=== PATIENT | female | born 1995 | race Caucasian/White ===

== ENCOUNTER 2017-09-02 13:02 | Emergency (ER) | payer OTHER, SELFPAY ==
[2017-09-02 13:26] VITALS: BP 126/78; PULSE 98; RESP 18; TEMP 36.9; O2SAT 99; BMI 20.3
--- NOTE | 2017-09-02 13:57 | ED_ITS ---
HPI - Abdominal Pain General Chief Complaint: Abdominal Pain Stated Complaint: ABDOMINAL PAIN,VOMMITING,BLOOD IN STOOL Time Seen by Provider: 09/02/17 13:57 Source: patient Mode of arrival: ambulatory Limitations: no limitations History of Present Illness HPI narrative: Patient is a 22-year-old female presenting with lower abdominal pain and cramping along with diarrhea. She said she woke up this morning feeling quite nauseated he and vomited a couple times and she had multiple episodes of loose diarrhea and lower abdominal cramping. She had a very small amount of blood as well. She was feeling ill are ready for about 1-2 weeks with upper respiratory like symptoms. On that she woke up with a GI symptoms today. She thinks she has had fever off and on. She is tolerating oral fluids. No on else is sick at home. MD complaint: abdominal pain Related Data Home Medications Medication Instructions Recorded Confirmed No Known Home Medications 09/02/17 09/02/17 Previous Rx's Medication Instructions Recorded ondansetron [Zofran ODT] 4 mg PO Q6H PRN #10 tab 09/02/17 Allergies Allergy/AdvReac Type Severity Reaction Status Date / Time No Known Drug Allergies Allergy Verified 07/27/17 00:42 Review of Systems Review of Systems GENERAL: Denies chills, fatigue, malaise, fever, sweats, travel HEENT: + nasal congestion, drainage RESPIRATORY: + cough Denies dyspnea, wheezing, hemoptysis, sputum. CARDIOVASCULAR: Denies chest pain, palpitations, orthopnea, edema GASTROINTESTINAL: See HPI : Denies dysuria, frequency, incontinence, hematuria, urinary retention, flank pain. MUSCULOSKELETAL: Denies weakness, joint pain, or bony pain SKIN: No rash, no erythema, no pruritus NEUROLOGIC: Denies weakness, dizziness, headache, numbness, change in speech, confusion PSYCHIATRIC: No concerning psychosocial issues. 12 point review of systems is negative except for those stated above and HPI All systems reviewed & are unremarkable except as noted in HPI and below PFSH Medical History Hip bursitis (Acute) Social History Smoking Status: Never smoker Exam Initial Vital Signs Initial Vital Signs: Vital Signs Temperature 98.5 F 09/02/17 13:26 Pulse Rate 98 H 09/02/17 13:26 Respiratory Rate 18 09/02/17 13:26 Blood Pressure 126/78 H 09/02/17 13:26 Pulse Oximetry 99 09/02/17 13:26 GENERAL: Well-appearing, well-nourished and in no acute distress. HEENT: Head atraumatic,EOMI, pupils reactive, moist mucous membranes CARDIOVASCULAR: Regular rate and rhythm without murmurs, rubs or gallops. RESPIRATORY: Breath sounds equal bilaterally, no wheezes rales or rhonchi. ABDOMEN: Soft, mild lower abdominal tenderness no guarding no rebound : No CVA tenderness EXTREMITIES: Normal range of motion, no clubbing or edema. Neurovascularly intact NEUROLOGICAL: Alert and oriented x4.Normal gait and speech. Cranial nerves II through XII grossly intact. SKIN: Warm, dry, no laceration, no petechiae, no rashes or lesions. Course Orders Ordered: ED Orders 09/02/17 14:20 Complete Blood Count AUTO DIFF Stat Comprehensive Metabolic Panel Stat Lipase Stat Discontinued Medications Sodium Chloride (Normal Saline 0.9%) 1,000 mls @ 150 mls/hr IV CONT MIKI Last Infusion: 09/02/17 15:24 Dose: 1,000 mls/hr Admin: 09/02/17 14:32 Dose: 150 mls/hr Ketorolac Tromethamine (Toradol) 30 mg IV NOW ONE Stop: 09/02/17 14:12 Last Admin: 09/02/17 14:32 Dose: 30 mg Ondansetron HCl (Zofran) 4 mg IV NOW ONE Stop: 09/02/17 14:12 Last Admin: 09/02/17 14:32 Dose: 4 mg Vital Signs - 8 hr 09/02/17 13:26 09/02/17 14:29 09/02/17 15:05 Temperature 98.5 F Pulse Rate 98 H 77 69 Respiratory Rate 18 18 15 Blood Pressure 126/78 H Blood Pressure [Right Arm] 115/69 117/74 Pulse Oximetry 99 98 100 MDM - Abdominal Pain Lab Data Result diagrams: 09/02/17 14:20 09/02/17 14:20 Lab Results 09/02/17 09/02/17 Range/Units 14:20 14:20 WBC 4.9 (4.5-11.0) X10^3/uL RBC 4.93 (4.0-5.2) X10^6/uL Hgb 13.9 (12.0-16.0) g/dL Hct 40.7 (36-46) % MCV 82.7 (80-100) fL MCH 28.2 (26-34) PG MCHC 34.1 (30-36) % RDW 12.8 (11.6-14.8) % Plt Count 258 (150-400) X10^3/uL Neut % (Auto) 64.9 (50-75) % Lymph % (Auto) 21.5 L (25-40) % [place] % (Auto) 8.7 (3-14) % Eos % (Auto) 4.2 H (2-4) % Baso % (Auto) 0.7 (0-2) % Neut # (Auto) 3200 (6317-2611) /uL Sodium 141 (137-145) mmol/L Potassium 4.2 (3.4-5.1) mmol/L Chloride 103 (98-107) mmol/L Carbon Dioxide 27 (22-32) mmol/L BUN 10 (7-17) mg/dL Creatinine 0.50 L (0.52-1.04) mg/dL Estimated GFR > 60.0 (>60) mL/min BUN/Creatinine Ratio 20.0 (6-22) Glucose 91 (70-100) mg/dL Calcium 9.4 (8.4-10.2) mg/dL Total Bilirubin 0.4 (0.2-1.3) mg/dL AST 31 (14-36) IU/L ALT 50 (9-52) IU/L Alkaline Phosphatase 65 (38-126) U/L Total Protein 7.8 (6.3-8.2) g/dL Albumin 4.4 (3.5-5.0) g/dL Globulin 3.4 (1.7-4.1) g/dL Albumin/Globulin Ratio 1.3 (1.0-2.8) Lipase 22 L (23-300) U/L Discharge Plan Departure Patient Disposition: Home, Self-Care Clinical Impression: Gastroenteritis Discharge Date/Time: 09/02/17 15:55 Interventions: ED Discharge Assessment Last Done: 09/02/17 15:55 Instructions: DI for Viral Gastroenteritis -- Adult Activity Restrictions/Additional Instructions: 1) You have been diagnosed with viral gastroenteritis 2) What to do: Drink frequent but small amounts of fluids. I recommend Gatorade or a Gatorade-like product, as it has small amounts of sugar and salts that improve fluid retention. 3) Take medications as directed 4) Follow up with your primary care provider in 2-3 days 5) Return to ER if you should have any new or worsening symptoms such as, unable to hold down fluids despite use of anti-nausea medications and the small volume oral rehydration strategy. Prescriptions: New ondansetron [Zofran ODT] 4 mg tablet,disintegrating 4 mg PO Q6H PRN (Reason: nausea and vomiting) Qty: 10 RF: 0 No Action No Known Home Medications RF: 0 Referrals: [facility] [Outside]
[2017-09-02 14:29] VITALS: BP 115/69; PULSE 77; RESP 18; O2SAT 98
[2017-09-02] MEDS: SODIUM CHLORIDE 0.9% 1,000 ML 150 ML IV (14:32)
[2017-09-02] MEDS: ONDANSETRON 4 MG/2 ML INJ IV (14:32)
[2017-09-02] MEDS: KETOROLAC 60 MG/2 ML VIAL 30 MG IV (14:32)
[2017-09-02 14:35] LABS: Add Manual Diff / Slide Review NO; Basophils Percent Auto 0.7 % (0-2); Eosinophils Percent Auto 4.2 % (2-4); Hematocrit 40.7 % (36-46); Hemoglobin 13.9 g/dL (12.0-16.0); Lymphocytes Percent Auto 21.5 % (25-40); Mean Corpuscular HGB Conc 34.1 % (30-36); Mean Corpuscular Hemoglobin 28.2 PG (26-34); Mean Corpuscular Volume 82.7 fL (80-100); Monocytes Percent Auto 8.7 % (3-14); Neutrophils Absolute Auto 3200 /uL (3000-5900); Neutrophils Percent Auto 64.9 % (50-75); Platelet Count 258 X10^3/uL (150-400); Red Blood Cell Count 4.93 X10^6/uL (4.0-5.2); Red Cell Distribution Width 12.8 % (11.6-14.8); White Blood Cell Count 4.9 X10^3/uL (4.5-11.0)
[2017-09-02 14:43] LABS: Alanine Aminotransferase 50 IU/L (9-52); Albumin 4.4 g/dL (3.5-5.0); Albumin Globulin Ratio 1.3 (1.0-2.8); Alkaline Phosphatase 65 U/L (38-126); Aspartate Aminotransferase 31 IU/L (14-36); Bilirubin Total 0.4 mg/dL (0.2-1.3); Blood Urea Nitrogen 10 mg/dL (7-17); Calcium 9.4 mg/dL (8.4-10.2); Carbon Dioxide 27 mmol/L (22-32); Chloride 103 mmol/L (98-107); Estimated Glomerular Filt Rate > 60.0 mL/min (>60); Globulin 3.4 g/dL (1.7-4.1); Glucose 91 mg/dL (70-100); HEMOLYSIS < 15 (0-50); Lipase 22 U/L (23-300); Potassium 4.2 mmol/L (3.4-5.1); Sodium 141 mmol/L (137-145); Total Protein 7.8 g/dL (6.3-8.2)
[2017-09-02 15:05] VITALS: BP 117/74; PULSE 69; RESP 15; O2SAT 100
--- NOTE | 2017-09-02 15:07 | ED_ITS ---
HPI - Abdominal Pain General Chief Complaint: Abdominal Pain Stated Complaint: ABDOMINAL PAIN,VOMMITING,BLOOD IN STOOL Time Seen by Provider: 09/02/17 13:57 Source: patient Mode of arrival: ambulatory Limitations: no limitations History of Present Illness MD complaint: abdominal pain Related Data Home Medications Medication Instructions Recorded Confirmed No Known Home Medications 09/02/17 09/02/17 Previous Rx's Medication Instructions Recorded ondansetron [Zofran ODT] 4 mg PO Q6H PRN #10 tab 09/02/17 Allergies Allergy/AdvReac Type Severity Reaction Status Date / Time No Known Drug Allergies Allergy Verified 07/27/17 00:42 PFSH Medical History Hip bursitis (Acute) Social History Smoking Status: Never smoker Exam Initial Vital Signs Initial Vital Signs: Vital Signs Temperature 98.5 F 09/02/17 13:26 Pulse Rate 98 H 09/02/17 13:26 Respiratory Rate 18 09/02/17 13:26 Blood Pressure 126/78 H 09/02/17 13:26 Pulse Oximetry 99 09/02/17 13:26 Scores PERC Score Age greater than or equal to 50 years: No Heart rate greater than or equal to 100 bpm: No Room Air O2 Sat less than 95%: No Unilateral leg swelling: No Recent trauma or surgery: No Hemoptysis: No Prior PE or DVT: No Hormone Use: No Course Orders Ordered: ED Orders 09/02/17 14:20 Complete Blood Count AUTO DIFF Stat Comprehensive Metabolic Panel Stat Lipase Stat Sodium Chloride (Normal Saline 0.9%) 1,000 mls @ 150 mls/hr IV CONT MIKI Last Admin: 09/02/17 14:32 Dose: 150 mls/hr Discontinued Medications Ketorolac Tromethamine (Toradol) 30 mg IV NOW ONE Stop: 09/02/17 14:12 Last Admin: 09/02/17 14:32 Dose: 30 mg Ondansetron HCl (Zofran) 4 mg IV NOW ONE Stop: 09/02/17 14:12 Last Admin: 09/02/17 14:32 Dose: 4 mg Vital Signs - 8 hr 09/02/17 13:26 09/02/17 14:29 Temperature 98.5 F Pulse Rate 98 H 77 Respiratory Rate 18 18 Blood Pressure 126/78 H Blood Pressure [Right Arm] 115/69 Pulse Oximetry 99 98 MDM - Abdominal Pain Lab Data Result diagrams: 09/02/17 14:20 09/02/17 14:20 Lab Results 09/02/17 09/02/17 Range/Units 14:20 14:20 WBC 4.9 (4.5-11.0) X10^3/uL RBC 4.93 (4.0-5.2) X10^6/uL Hgb 13.9 (12.0-16.0) g/dL Hct 40.7 (36-46) % MCV 82.7 (80-100) fL MCH 28.2 (26-34) PG MCHC 34.1 (30-36) % RDW 12.8 (11.6-14.8) % Plt Count 258 (150-400) X10^3/uL Neut % (Auto) 64.9 (50-75) % Lymph % (Auto) 21.5 L (25-40) % [place] % (Auto) 8.7 (3-14) % Eos % (Auto) 4.2 H (2-4) % Baso % (Auto) 0.7 (0-2) % Neut # (Auto) 3200 (2607-0128) /uL Sodium 141 (137-145) mmol/L Potassium 4.2 (3.4-5.1) mmol/L Chloride 103 (98-107) mmol/L Carbon Dioxide 27 (22-32) mmol/L BUN 10 (7-17) mg/dL Creatinine 0.50 L (0.52-1.04) mg/dL Estimated GFR > 60.0 (>60) mL/min BUN/Creatinine Ratio 20.0 (6-22) Glucose 91 (70-100) mg/dL Calcium 9.4 (8.4-10.2) mg/dL Total Bilirubin 0.4 (0.2-1.3) mg/dL AST 31 (14-36) IU/L ALT 50 (9-52) IU/L Alkaline Phosphatase 65 (38-126) U/L Total Protein 7.8 (6.3-8.2) g/dL Albumin 4.4 (3.5-5.0) g/dL Globulin 3.4 (1.7-4.1) g/dL Albumin/Globulin Ratio 1.3 (1.0-2.8) Lipase 22 L (23-300) U/L Discharge Plan Departure Patient Disposition: Home, Self-Care Clinical Impression: Gastroenteritis Instructions: DI for Viral Gastroenteritis -- Adult Activity Restrictions/Additional Instructions: 1) You have been diagnosed with viral gastroenteritis 2) What to do: Drink frequent but small amounts of fluids. I recommend Gatorade or a Gatorade-like product, as it has small amounts of sugar and salts that improve fluid retention. 3) Take medications as directed 4) Follow up with your primary care provider in 2-3 days 5) Return to ER if you should have any new or worsening symptoms such as, unable to hold down fluids despite use of anti-nausea medications and the small volume oral rehydration strategy. Prescriptions: New ondansetron [Zofran ODT] 4 mg tablet,disintegrating 4 mg PO Q6H PRN (Reason: nausea and vomiting) Qty: 10 RF: 0 No Action No Known Home Medications RF: 0 Referrals: [facility] [Outside]
== END 2017-09-02 15:55 | disposition home or self-care (01) ==
PROVIDERS: Emergency Provider Emergency Medicine
DX: K52.9 Noninfective gastroenteritis and colitis, unspecified (principal)
CPT/HCPCS: 36591; 80053; 81003; 81025; 83690; 85025; 96361; 96374; 96375; 99283; J1885; J2405

== ENCOUNTER 2018-02-14 14:26 | Emergency (ER) | payer OTHER, SELFPAY ==
[2018-02-14 14:52] VITALS: BP 115/76; PULSE 71; RESP 18; TEMP 37.6; O2SAT 98; BMI 20.8
--- NOTE | 2018-02-14 17:53 | DI.US.S_ITS ---
PROCEDURE: US OB <= 14 WEEKS FETUS INDICATIONS: BLEEDING OUTSIDE/PRIOR DATING DATA: Last menstrual period (LMP): 11/08/17. LMP-based estimated date of delivery (NICA): 08/15/18 (assuming viable gestation). First dating scan (date and location): This study, 02/14/18. Estimated date of delivery (NICA) from first dating scan: demise. TECHNIQUE: Real-time scanning was performed of the fetus and maternal pelvic organs, with image documentation. Endovaginal scanning was also performed to better visualize the fetus and maternal ovaries. COMPARISON: None. FINDINGS: Embryo: [place]-rump length 1.8 cm which correlates with a gestational age of 8 weeks 2 days, but no cardiac activity was present. Measurement variability in dating: +/- 4 weeks by LMP, +/- 7 days by mean sac diameter (use before 6 weeks gestation if crown-rump length not able to be measured), +/- 5 days by crown-rump length (up to 8 weeks 6 days gestation), +/- 7 days by crown-rump length (up to 13 weeks 6 days gestation). Maternal organs: Ovaries normal.. Limited images through the kidneys demonstrate no hydronephrosis. IMPRESSION: demise, 8 week 2 day gestational age by crown-rump length. No sign of ectopic . Dictated by: Doc Polk M.D. on 02/14/2018 at 18:48 Approved by: Doc Polk M.D. on 02/14/2018 at 18:50
--- NOTE | 2018-02-14 18:31 | ED_ITS ---
HPI - <Geraldine Mcintosh PA-C - Last Filed: 02/14/18 22:47> General Chief complaint: Vaginal Bleeding Stated complaint: 14 wks , cramping and bleeding Time Seen by Provider: 02/14/18 17:53 Source: patient Mode of arrival: ambulatory Limitations: no limitations History of Present Illness HPI Narrative: This 22-year-old female who is 14 weeks by LMP of comes in due to onset of pelvic cramps and vaginal bleeding today. She states that this is more than spotting, but she has not needed to change a pad since this started about 12 30 this afternoon. She states that [place] She has been trying to get into Ob at the [facility] here but has not been able to obtain an appointment since she returned home a few weeks ago. She is set up for some screening tomorrow. This is her 1st . She states that her Nexplanon was removed in end of March or early April and they thought she was at that point but tests were all negative. She has some menstrual irregularity and has always had heavy bleeding and severe cramping. She states that she has had workup in the past including for ovarian cysts but no problems found. She is concerned about endometriosis but has not had workup for that. She states that she was doing some gentle stretching like child's pose today when symptoms started. She denies any fevers, chills, or sweats at home. She denies any urinary symptoms, abdominal pain. She states that she did have significant nausea and vomiting earlier in the but not today. She denies any other new symptoms on systems review but is concerned that she may have had a positive urinalysis at the [facility] when tested. She was not called with results. Related Data Home Medications Medication Instructions Recorded Confirmed No Known Home Medications 09/02/17 09/02/17 Allergies Allergy/AdvReac Type Severity Reaction Status Date / Time No Known Drug Allergies Allergy Verified 02/14/18 14:57 Review of Systems <Geraldine Mcintosh PA-C - Last Filed: 02/14/18 22:47> Review of Systems All systems reviewed & are unremarkable except as noted in HPI and below PMFSH - <Geraldine Mcintosh PA-C - Last Filed: 02/14/18 22:47> Past Medical History Heavy menstrual bleeding and cramps, chronic right hip and left shoulder pain Surgical history: Reports no surgical history Exam <Geraldine Mcintosh PA-C - Last Filed: 02/14/18 22:47> Narrative Exam Narrative: GENERAL APPEARANCE: Patient sitting comfortably, in no distress. HEENT: PERRL, EOMI, conjunctiva pink NECK: Supple LUNGS: Clear to auscultation bilaterally. HEART: Rate and rhythm regular, normal S1 and S2, no S3 or S4. ABDOMEN: Soft, nondistended, bowel sounds present x 4 quadrants, no masses palpable, no hepatosplenomegaly. Mild suprapubic tenderness without guarding or rebound. No CVAT EXTREMITIES: No edema, no calf tenderness DERMATOLOGIC: No jaundice or exanthem NEUROLOGIC: Alert and oriented with normal speech and coordination Initial Vital Signs Initial Vital Signs: Vital Signs Temperature 99.6 F 02/14/18 14:52 Pulse Rate 71 02/14/18 14:52 Respiratory Rate 18 02/14/18 14:52 Blood Pressure 115/76 02/14/18 14:52 Pulse Oximetry 98 02/14/18 14:52 <Yolette Ott MD - Last Filed: 02/15/18 00:03> Initial Vital Signs Initial Vital Signs: Vital Signs Temperature 99.6 F 02/14/18 14:52 Pulse Rate 71 02/14/18 14:52 Respiratory Rate 18 02/14/18 14:52 Blood Pressure 115/76 02/14/18 14:52 Pulse Oximetry 98 02/14/18 14:52 Course <Geraldine Mcintosh PA-C - Last Filed: 02/14/18 22:47> Additional Information: Discussed with patient that ultrasound shows demise. This and her HCG level are consistent with an earlier stage of , and explained that possibly either dating was off due to variation in her menstrual cycle or demise occurred sometime ago. She is now having bleeding and cramping. She normally has severe cramping and heavy bleeding with menses and this is actually less severe now, so she will resume her usual ibuprofen and home treatments. She has not been able to see Ob locally, so she agrees to call [facility] tomorrow a.m. to set up f/u this week. Advised they may want to follow with lab work or repeat imaging depending upon her progress, she is agreeable with this as well as plan to return if any new symptoms such as fever, very heavy bleeding etc. Orders Ordered: ED Orders 02/14/18 17:53 US OB <= 14 weeks fetus Stat 02/14/18 18:28 ABO RH Type Stat Complete Blood Count AUTO DIFF Stat Comprehensive Metabolic Panel Stat HCG Quantitative Stat Discontinued Medications Ibuprofen (Advil) 800 mg PO NOW ONE Stop: 02/14/18 19:49 Last Admin: 02/14/18 19:51 Dose: 800 mg Ondansetron HCl (Zofran Odt) 4 mg PO NOW ONE Stop: 02/14/18 19:49 Last Admin: 02/14/18 19:52 Dose: 4 mg Vital Signs - 8 hr 02/14/18 18:39 02/14/18 20:42 Temperature 99.3 F 99.0 F Pulse Rate 84 80 Respiratory Rate 18 12 Blood Pressure [Left Arm] 118/74 110/72 Pulse Oximetry 100 98 <Yolette Ott MD - Last Filed: 02/15/18 00:03> Orders Ordered: ED Orders 02/14/18 17:53 US OB <= 14 weeks fetus Stat 02/14/18 18:28 ABO RH Type Stat Complete Blood Count AUTO DIFF Stat Comprehensive Metabolic Panel Stat HCG Quantitative Stat Discontinued Medications Ibuprofen (Advil) 800 mg PO NOW ONE Stop: 02/14/18 19:49 Last Admin: 02/14/18 19:51 Dose: 800 mg Ondansetron HCl (Zofran Odt) 4 mg PO NOW ONE Stop: 02/14/18 19:49 Last Admin: 02/14/18 19:52 Dose: 4 mg Vital Signs - 8 hr 02/14/18 18:39 02/14/18 20:42 Temperature 99.3 F 99.0 F Pulse Rate 84 80 Respiratory Rate 18 12 Blood Pressure [Left Arm] 118/74 110/72 Pulse Oximetry 100 98 MDM - OB/Uterine Contractions <Geraldine Mcintosh PA-C - Last Filed: 02/14/18 22:47> Lab Data Attestation: I reviewed the patient's lab results. Result diagrams: 02/14/18 18:28 02/14/18 18:28 Lab Results 02/14/18 02/14/18 02/14/18 Range/Units 18:28 18:28 18:28 WBC 10.0 (4.5-11.0) X10^3/uL RBC 4.90 (4.0-5.2) X10^6/uL Hgb 13.9 (12.0-16.0) g/dL Hct 40.9 (36-46) % MCV 83.6 (80-100) fL MCH 28.3 (26-34) PG MCHC 33.8 (30-36) % RDW 13.1 (11.6-14.8) % Plt Count 259 (150-400) X10^3/uL Neut % (Auto) 58.0 (50-75) % Lymph % (Auto) 30.8 (25-40) % [place] % (Auto) 7.3 (3-14) % Eos % (Auto) 3.2 (2-4) % Baso % (Auto) 0.7 (0-2) % Neut # (Auto) 5800 (8599-2338) /uL Sodium 143 (137-145) mmol/L Potassium 3.9 (3.4-5.1) mmol/L Chloride 104 (98-107) mmol/L Carbon Dioxide 25 (22-32) mmol/L BUN 5 L (7-17) mg/dL Creatinine 0.50 L (0.52-1.04) mg/dL Estimated GFR > 60.0 (>60) mL/min BUN/Creatinine Ratio 10.0 (6-22) Glucose 94 (70-100) mg/dL Calcium 9.6 (8.4-10.2) mg/dL Total Bilirubin 0.4 (0.2-1.3) mg/dL AST 37 H (14-36) IU/L ALT 46 (9-52) IU/L Alkaline Phosphatase 57 (38-126) U/L Total Protein 8.1 (6.3-8.2) g/dL Albumin 4.8 (3.5-5.0) g/dL Globulin 3.3 (1.7-4.1) g/dL Albumin/Globulin Ratio 1.5 (1.0-2.8) HCG, Quant 5096.3 mIU/mL Blood Type O Positive Urine Dip Bedside Urine Glucose Negative Bedside Urine Bilirubin - Negative Bedside Urine Ketone - Negative Urine Specific [place] 1.015 Bedside Urine Occult Blood +++ Bedside Urine pH 7.0 Bedside Urine Protein - Negative Bedside Urine Urobilinogen 1+ 2mg Bedside Urine Nitrite - Negative Bedside Urine Leukocytes - Negative Esterase <Yolette Ott MD - Last Filed: 02/15/18 00:03> Lab Data Lab Results 02/14/18 02/14/18 02/14/18 Range/Units 18:28 18:28 18:28 WBC 10.0 (4.5-11.0) X10^3/uL RBC 4.90 (4.0-5.2) X10^6/uL Hgb 13.9 (12.0-16.0) g/dL Hct 40.9 (36-46) % MCV 83.6 (80-100) fL MCH 28.3 (26-34) PG MCHC 33.8 (30-36) % RDW 13.1 (11.6-14.8) % Plt Count 259 (150-400) X10^3/uL Neut % (Auto) 58.0 (50-75) % Lymph % (Auto) 30.8 (25-40) % [place] % (Auto) 7.3 (3-14) % Eos % (Auto) 3.2 (2-4) % Baso % (Auto) 0.7 (0-2) % Neut # (Auto) 5800 (9816-0686) /uL Sodium 143 (137-145) mmol/L Potassium 3.9 (3.4-5.1) mmol/L Chloride 104 (98-107) mmol/L Carbon Dioxide 25 (22-32) mmol/L BUN 5 L (7-17) mg/dL Creatinine 0.50 L (0.52-1.04) mg/dL Estimated GFR > 60.0 (>60) mL/min BUN/Creatinine Ratio 10.0 (6-22) Glucose 94 (70-100) mg/dL Calcium 9.6 (8.4-10.2) mg/dL Total Bilirubin 0.4 (0.2-1.3) mg/dL AST 37 H (14-36) IU/L ALT 46 (9-52) IU/L Alkaline Phosphatase 57 (38-126) U/L Total Protein 8.1 (6.3-8.2) g/dL Albumin 4.8 (3.5-5.0) g/dL Globulin 3.3 (1.7-4.1) g/dL Albumin/Globulin Ratio 1.5 (1.0-2.8) HCG, Quant 5096.3 mIU/mL Blood Type O Positive Urine Dip Bedside Urine Glucose Negative Bedside Urine Bilirubin - Negative Bedside Urine Ketone - Negative Urine Specific [place] 1.015 Bedside Urine Occult Blood +++ Bedside Urine pH 7.0 Bedside Urine Protein - Negative Bedside Urine Urobilinogen 1+ 2mg Bedside Urine Nitrite - Negative Bedside Urine Leukocytes - Negative Esterase Discharge Plan Departure Patient Disposition: Home Clinical Impression: demise, Vaginal bleeding Discharge Date/Time: 02/14/18 20:46 Interventions: ED Discharge Assessment Last Done: 02/14/18 20:45 Instructions: Dealing With Miscarriage, DI for Miscarriage Activity Restrictions/Additional Instructions: Please return as we talked about if you have acutely worsening pain, or new symptoms such as uncontrollable vomiting or fever. Otherwise, please take 800 mg ibuprofen every 8 hr to help with cramping, and you can use Tylenol in addition as needed as well as your usual home treatments such as essential oils. Drink plenty of fluids and then you can start eating small amounts of bland food such as applesauce, bananas, white rice, clear broth, and you can advance your diet as tolerated. According to your test today, the baby appeared to be at about 8 weeks gestation. The discrepancy between this and your last period could be due to dates being off (i.e. from a missed period or timing of ovulation), or the baby may have stopped developing and passed at an earlier stage and the process of your body passing it is starting now. Please call [facility] tomorrow (where our SPECIAL ED[facility] SPECIALIST physicians practice). Let them know that you were seen in the emergency room with what we call demise, and that you need to schedule follow up this week. Dr. Bar is gas operation manager today but you can see any of the OB physicians there for recheck. They will be able to do follow-up testing and further treatment if you need. Prescriptions: No Action No Known Home Medications RF: 0 Referrals: Columba Bar MD [Physician] -
[2018-02-14 18:35] LABS: Add Manual Diff / Slide Review NO; Basophils Percent Auto 0.7 % (0-2); Eosinophils Percent Auto 3.2 % (2-4); Hematocrit 40.9 % (36-46); Hemoglobin 13.9 g/dL (12.0-16.0); Lymphocytes Percent Auto 30.8 % (25-40); Mean Corpuscular HGB Conc 33.8 % (30-36); Mean Corpuscular Hemoglobin 28.3 PG (26-34); Mean Corpuscular Volume 83.6 fL (80-100); Monocytes Percent Auto 7.3 % (3-14); Neutrophils Absolute Auto 5800 /uL (3000-5900); Platelet Count 259 X10^3/uL (150-400); Red Cell Distribution Width 13.1 % (11.6-14.8)
[2018-02-14 18:39] VITALS: BP 118/74; PULSE 84; RESP 18; TEMP 37.4; O2SAT 100
[2018-02-14 18:46] LABS: Alanine Aminotransferase 46 IU/L (9-52); Albumin 4.8 g/dL (3.5-5.0); Albumin Globulin Ratio 1.5 (1.0-2.8); Alkaline Phosphatase 57 U/L (38-126); Aspartate Aminotransferase 37 IU/L (14-36); Bilirubin Total 0.4 mg/dL (0.2-1.3); Blood Urea Nitrogen 5 mg/dL (7-17); Calcium 9.6 mg/dL (8.4-10.2); Carbon Dioxide 25 mmol/L (22-32); Chloride 104 mmol/L (98-107); Estimated Glomerular Filt Rate > 60.0 mL/min (>60); Globulin 3.3 g/dL (1.7-4.1); Glucose 94 mg/dL (70-100); HEMOLYSIS < 15 (0-50); Potassium 3.9 mmol/L (3.4-5.1); Sodium 143 mmol/L (137-145); Total Protein 8.1 g/dL (6.3-8.2)
[2018-02-14 19:03] LABS: HCG Quantitative /Beta subunit 5096.3 mIU/mL
[2018-02-14] MEDS: IBUPROFEN 400 MG TABLET 800 MG PO (19:51)
[2018-02-14] MEDS: ONDANSETRON 4 MG ODT PO (19:52)
[2018-02-14 20:42] VITALS: BP 110/72; PULSE 80; RESP 12; TEMP 37.2; O2SAT 98
== END 2018-02-14 20:46 | disposition home or self-care (01) ==
PROVIDERS: Emergency Medicine; Emergency Provider Internal Medicine
DX: O02.1 Missed abortion (principal); Z3A.14 14 weeks gestation of pregnancy
CPT/HCPCS: 36415; 76801; 76817; 80053; 81003; 84702; 85025; 86900; 86901; 99282; 99284

== ENCOUNTER 2018-02-16 00:42 | Emergency (ER) | payer OTHER, SELFPAY ==
[2018-02-16 00:45] VITALS: BP 125/92; PULSE 103; RESP 20; TEMP 36.8; O2SAT 100; BMI 20.9
[2018-02-16 00:50] VITALS: BP 125/92; PULSE 103; RESP 20; TEMP 36.8; O2SAT 100
--- NOTE | 2018-02-16 00:52 | ED.GENADULT ---
HPI - General Adult General Chief complaint: OB/Uterine Contractions Stated complaint: states miscarriage bleeding, dizziness approx 8 wk Time Seen by Provider: 02/16/18 00:50 Source: patient Mode of arrival: ambulatory Limitations: no limitations History of Present Illness HPI narrative: Patient is a O-positive blood type who was seen here in the emergency department recently and diagnosed with the intrauterine demise. She thought that she was 14 weeks along however the fetus measured approximately 8 weeks without any signs of life. Patient states she was discharged home not having any symptoms at all that over the past 6 hr she has had quite a bit of vaginal bleeding and also lower abdominal cramping lower back pain. No urinary symptoms. No fevers. She also states that she has felt lightheaded. She was concerned that she was bleeding too much so she came into the emergency department for evaluation. Related Data Home Medications Medication Instructions Recorded Confirmed No Known Home Medications 09/02/17 09/02/17 Allergies Allergy/AdvReac Type Severity Reaction Status Date / Time No Known Drug Allergies Allergy Verified 02/14/18 14:57 Review of Systems Constitutional Denies fever(s) and Denies headache(s) ENT Ears, Nose, Mouth, and Throat: Denies vertigo, Reports dizziness and Denies headache(s) Cardiovascular Denies chest pain, Denies syncope and Denies dyspnea Respiratory Denies dyspnea Gastrointestinal Gastrointestinal: Reports abdominal pain, Denies change in bowel habits and Reports nausea Genitourinary Denies dysuria, Denies urinary urgency, Reports vaginal discharge and Denies vaginal dryness Musculoskeletal Denies myalgias and Denies arthralgias Integumentary/Breasts Denies rash Neurologic Denies vertigo, Reports dizziness, Denies syncope and Denies headache(s) Hematologic/Lymphatic Comments: Not on anticoagulation Allergic/Immunologic Denies urticaria [facility] Medical History Hip bursitis (Acute) Surgical History No pertinent past surgical history (Acute) Social History marital status: Smoking Status: Former smoker Exam Initial Vital Signs Initial Vital Signs: Vital Signs Temperature 98.2 F 02/16/18 00:45 Pulse Rate 103 H 02/16/18 00:45 Respiratory Rate 20 02/16/18 00:45 Blood Pressure 125/92 H 02/16/18 00:45 Pulse Oximetry 100 02/16/18 00:45 Const General: cooperative, healthy appearing, comfortable, well developed, well groomed and No acute distress Orientation: alert, awake and oriented x3 HENMT Head: normal to inspection and normocephalic Resp Effort & Inspection: normal respiratory effort Auscultation: clear to auscultation bilaterally Cardio Rate: regular rate Rhythm: regular rhythm Pulses: radial pulses present GI Inspection: non-distended Palpation: soft, No firm, No guarding, No rigid and tender ( lower abdomen) External Female Exam: external appearance normal Speculum Exam - Vagina: normal appearance of the vagina and vaginal bleeding Speculum Exam - Cervix: normal appearance of the cervix OB/External & Speculum: vaginal bleeding Skin Lesions: no lesions Rashes: no rashes Neuro General: alert, awake and oriented x3 Extrem General: normal to inspection, capillary refill normal and No edema Psych Appearance: grossly normal and well kempt Course Orders Ordered: ED Orders 02/16/18 02:12 Complete Blood Count AUTO DIFF Stat Discontinued Medications Hydrocodone Bitart/Acetaminophen ([place] 5/325) 1 tab PO NOW ONE Stop: 02/16/18 01:13 Last Admin: 02/16/18 01:21 Dose: 1 tab Ondansetron HCl (Zofran Odt) 4 mg PO NOW ONE Stop: 02/16/18 02:04 Last Admin: 02/16/18 02:08 Dose: 4 mg Vital Signs - 8 hr 02/16/18 00:45 02/16/18 00:50 02/16/18 02:00 Temperature 98.2 F 98.2 F Pulse Rate 103 H 103 H Respiratory Rate 20 20 Blood Pressure 125/92 H Blood Pressure [Right Arm] 125/92 H 106/74 Pulse Oximetry 100 100 Medical Decision Making Lab Data Lab results reviewed: Yes I reviewed the patient's lab results. Result diagrams: 02/16/18 02:12 Lab Results 02/16/18 Range/Units 02:12 WBC 9.9 (4.5-11.0) X10^3/uL RBC 4.17 (4.0-5.2) X10^6/uL Hgb 12.0 (12.0-16.0) g/dL Hct 34.8 L (36-46) % MCV 83.5 (80-100) fL MCH 28.6 (26-34) PG MCHC 34.3 (30-36) % RDW 12.9 (11.6-14.8) % Plt Count 245 (150-400) X10^3/uL Neut % (Auto) 67.3 (50-75) % Lymph % (Auto) 22.1 L (25-40) % [place] % (Auto) 6.4 (3-14) % Eos % (Auto) 3.4 (2-4) % Baso % (Auto) 0.8 (0-2) % Neut # (Auto) 6700 H (2950-5991) /uL MDM Narrative Medical decision making narrative: patient's blood type is O-positive. During the pelvic exam I did remove quite a bit of blood and clots from the vaginal vault. No tissue was noted. No active bleeding from the cervix. Patient was given pain medication. Blood counts unremarkable. Had a long discussion with the patient her regarding her symptoms and what is expected for a miscarriage. She was given return precautions. They all expressed understanding and agreement with plan. Discharge Plan Departure Patient Disposition: Home Clinical Impression: Miscarriage Instructions: Dealing With Miscarriage, DI for Miscarriage Activity Restrictions/Additional Instructions: return to the emergency department for any new symptoms, worsening pain, fevers, urinary symptoms or any other concerning symptoms. Prescriptions: No Action No Known Home Medications RF: 0
[2018-02-16] MEDS: HYDROCODONE/ACET 5/325 TABLET 1 TAB PO (01:21)
--- NOTE | 2018-02-16 01:52 | PC.NURSE ---
Assisted Dr Sosa with pelvic exam.
[2018-02-16 02:00] VITALS: BP 106/74
[2018-02-16] MEDS: ONDANSETRON 4 MG ODT PO (02:08)
[2018-02-16 02:28] LABS: Add Manual Diff / Slide Review NO; Basophils Percent Auto 0.8 % (0-2); Eosinophils Percent Auto 3.4 % (2-4); Hematocrit 34.8 % (36-46); Lymphocytes Percent Auto 22.1 % (25-40); Mean Corpuscular HGB Conc 34.3 % (30-36); Mean Corpuscular Hemoglobin 28.6 PG (26-34); Mean Corpuscular Volume 83.5 fL (80-100); Monocytes Percent Auto 6.4 % (3-14); Neutrophils Absolute Auto 6700 /uL (3000-5900); Neutrophils Percent Auto 67.3 % (50-75); Platelet Count 245 X10^3/uL (150-400); Red Blood Cell Count 4.17 X10^6/uL (4.0-5.2); Red Cell Distribution Width 12.9 % (11.6-14.8); White Blood Cell Count 9.9 X10^3/uL (4.5-11.0)
[2018-02-16] MEDS: ONDANSETRON 4 MG ODT PREPACK 1 BOTTLE MISC (02:49)
[2018-02-16] MEDS: HYDROCODONE/ACET 5/325 PREPACK 1 BOTTLE MISC (02:49)
[2018-02-16 02:59] VITALS: BP 106/74; PULSE 89; RESP 16; O2SAT 100
== END 2018-02-16 03:03 | disposition home or self-care (01) ==
PROVIDERS: Emergency Provider Emergency Medicine
DX: O03.9 Complete or unspecified spontaneous abortion without complication (principal)
CPT/HCPCS: 36415; 85025; 99282; 99283

== ENCOUNTER 2018-02-17 11:28 | Day surgery (SDC) | payer OTHER, SELFPAY ==
[2018-02-17] VITALS (10 sets, daily range): BP systolic 95–117; BP diastolic 54–72; PULSE 68–102; RESP 12–20; TEMP 36.6–38.3; O2SAT 95–100; BMI 19.9; BMI 19.8
--- NOTE | 2018-02-17 | DI.US.S_ITS ---
PROCEDURE: US PELVIC LIMITED INDICATIONS: Possible retained products of conception. TECHNIQUE: Real-time transabdominal scanning was performed of the pelvic organs, with image documentation. COMPARISON: None. FINDINGS: Uterus: Uterus is normal in size at 5.3 x 6.8 x 11.6 cm, anteverted. Endometrium measures 13 mm in combined thickness. What appears to be retained products of conception are identified in the mid to lower uterine segment area of the endometrium, in an area measuring up to 1.1 x 1.2 x 4.3 cm Ovaries: The ovaries bilaterally appear normal, measuring up to 1.5 x 2.0 x 3.5 cm on the right and 2.2 x 2.0 x 2.5 cm on the left. Other: No free pelvic fluid. Limited scanning through the kidneys shows no hydronephrosis. IMPRESSION: Retained products of conception measuring up to 1.1 x 1.2 x 4.3 cm are found within the endometrial canal, involving the middle and lower thirds of the endometrial space. Dictated by: Doc Polk M.D. on 02/17/2018 at 15:18 Approved by: Doc Polk M.D. on 02/17/2018 at 15:20
--- NOTE | 2018-02-17 | PATH_ITS ---
[facility] Accession Number: [id number] . 01 Material submitted: . PRODUCTS OF CONCEPTION . 02 Diagnosis: Products of Conception: Products of conception identified. MRV/02/21/2018 . 02 Electronically signed: . Yolette Latham MD, Pathologist NPI- [id number] . 01 Gross description: . Received in one formalin-filled container labeled with the patient's name and labeled products of conception, are multiple portions of tissue and blood which aggregate to 4.0 x 3.0 x 1.0 cm. No grossly recognizable parts are observed. The specimen is entirely submitted in four cassettes. ([id number]) /FRR . 02 Pathologist provided ICD-10: O02.1 . 02 CPT . 799775 Performed at: 01 [facility] [address] [id number] MD Krzysztof Wells MD Phone: [phone] Performed at: 02 [facility] [place] [address] [place] [id number] MD Wendie Bunch MD Phone: [phone]
[2018-02-17] MEDS: LACTATED RINGERS 1,000 ML 42 ML IV (11:48)
--- NOTE | 2018-02-17 13:44 | PM.PREOP ---
Pre-operative Note Interval Note Pre-op Check: Yes History & Physical exam performed today by Physician Changes: No
--- NOTE | 2018-02-17 14:40 | SUR.OPER ---
Lithotomy on padded OR bed, head on pillow, arms secured on padded arm boards at <90 degrees abduction. Legs secured in padded yellow fins stirrups.
[2018-02-17] MEDS: OXYCODONE/ACETAMINOPHEN 5/325 TABLET 1 TAB PO (15:56)
--- NOTE | 2018-02-18 06:01 | PM.HP.1 ---
History of Present Illness Date Patient Seen: 02/17/18 Time Patient Seen: 12:15 Chief complaint: Dilation and Curettage [id number] Narrative: Patient is a 22-year-old 1 para 0 with a missed at 8 weeks Patient History Medical History Hip bursitis (Acute) Missed with demise before 20 completed weeks of gestation (Acute) Surgical History No pertinent past surgical history (Acute) Family & Social History Social History: household members spouse Tobacco & Substance use: Smoking Status Former smoker alcohol intake frequency 0-2 drinks per day Substance Use Type does not use Meds Home Medications Medication Instructions Recorded Confirmed Type PNV [id number] 1 tab PO DAILY 02/17/18 02/17/18 History oxycodone-acetaminophen [Percocet] 2 tab PO Q4-6H PRN #20 tab 02/17/18 Rx Allergies Allergy/AdvReac Type Severity Reaction Status Date / Time No Known Drug Allergies Allergy Verified 02/17/18 11:38 Exam Vital Signs (past 8 hours): Oxygen Delivery Method Room Air Narrative Exam Narrative: HEENT: No thyromegaly, no anterior cervical or supraclavicular lymphadenopathy. Lungs:Clear to auscultation bilaterally, no wheezes. Cardiovascular: Regular rate and rhythm, no murmurs, rubs, or gallops. Abdomen: No scars. No hepatosplenomegaly. No masses palpable. External genitalia: Normal Vagina: Normal Cervix: Normal Bimanual exam: 8 Week size uterus. Mobile. Rectal: No masses. Objective Labs Labs: Blood type is O positive Assessment & Plan (1) Missed with demise before 20 completed weeks of gestation: Current visit: No Status: Acute Plan: Assessment/Plan Narrative: Assessment: 22-year-old 1 para 0 with a missed at 8 weeks gestation Plan: Suction D&C The risks, benefits, and alternatives to the procedure were explained to the patient. The risks including bleeding, infection, or uterine perforation. She understands these risks and agrees to proceed. A full PAR-Q was held and consent form was signed.
--- NOTE | 2018-02-18 06:05 | P.HP_ITS ---
History of Present Illness Date Patient Seen: 02/17/18 Time Patient Seen: 12:15 Chief complaint: Dilation and Curettage [id number] Narrative: Patient is a 22-year-old 1 para 0 with a missed at 8 weeks Patient History Medical History Hip bursitis (Acute) Missed with demise before 20 completed weeks of gestation (Acute) Surgical History No pertinent past surgical history (Acute) Family & Social History Social History: household members spouse Tobacco & Substance use: Smoking Status Former smoker alcohol intake frequency 0-2 drinks per day Substance Use Type does not use Meds Home Medications Medication Instructions Recorded Confirmed Type PNV [id number] 1 tab PO DAILY 02/17/18 02/17/18 History oxycodone-acetaminophen [Percocet] 2 tab PO Q4-6H PRN #20 tab 02/17/18 Rx Allergies Allergy/AdvReac Type Severity Reaction Status Date / Time No Known Drug Allergies Allergy Verified 02/17/18 11:38 Exam Vital Signs (past 8 hours): Oxygen Delivery Method Room Air Narrative Exam Narrative: HEENT: No thyromegaly, no anterior cervical or supraclavicular lymphadenopathy. Lungs:Clear to auscultation bilaterally, no wheezes. Cardiovascular: Regular rate and rhythm, no murmurs, rubs, or gallops. Abdomen: No scars. No hepatosplenomegaly. No masses palpable. External genitalia: Normal Vagina: Normal Cervix: Normal Bimanual exam: 8 Week size uterus. Mobile. Rectal: No masses. Objective Labs Labs: Blood type is O positive Assessment & Plan (1) Missed with demise before 20 completed weeks of gestation: Current visit: No Status: Acute Plan: Assessment/Plan Narrative: Assessment: 22-year-old 1 para 0 with a missed at 8 weeks gestation Plan: Suction D&C The risks, benefits, and alternatives to the procedure were explained to the patient. The risks including bleeding, infection, or uterine perforation. She understands these risks and agrees to proceed. A full PAR-Q was held and consent form was signed.
--- NOTE | 2018-02-18 06:11 | P.OP_ITS ---
Operative Date/Time/Diagnoses Date of procedure: 02/17/18 Time of procedure: 14:45 Pre-op diagnosis: Missed at 8 weeks Post-op diagnosis: same Procedure: Procedures Operation Date: 02/17/18 12:30 Actual Procedures Side Surgeon p Dilation and Curettage-suction Columba Bar MD Indications: Missed at 8 weeks Surgeon: Columba Bar Anesthesia Type: General (LMA) Operative Notes Findings: 8 week size anteverted uterus Large amount of products conception Closure Type: not applicable Specimen(s): other (Products of conception) Applied: catheter (In and out) Estimated blood loss (mL): 100 Blood products transfused: none Procedure in detail: After informed consent was obtained, the patient was taken to the operating room where she was placed in the dorsal supine position. After adequate LMA general anesthesia was achieved, she was placed in the dorsal lithotomy position, and prepped and draped in the usual sterile fashion. A time-out was performed. A bivalve speculum was placed into the vagina, and the anterior lip of the cervix grasped with a single-tooth tenaculum. The cervical os was sequentially dilated to the # 8 Hegar dilator. The # 8 curved plastic curette passed easily into the endometrial cavity. Several passes with suction revealed a large amount of fluid and blood as well as tissue. The suction curette was removed from the uterus. Gentle sharp curettage was performed yielding minimal amount of tissue. Several more passes with suction revealed blood only. The instruments were removed from the uterus. The single- tooth tenaculum was removed from the anterior lip of the cervix. The bivalve speculum was removed from the vagina. There was minimal amount of bleeding from the cervical os. Sponge, lap, and instrument counts were correct x2. Patient tolerated the procedure well, and was taken to PACU in stable condition. Complications: none Post-operative Condition: stable Disposition: PACU Plan for aftercare: Home after recovery
== END 2018-02-17 16:30 | disposition home or self-care (01) ==
PROVIDERS: Visit Provider Obstetrics & Gynecology
PROC: (CPT 58120; principal; 2018-02-17 12:30)
DX: O02.1 Missed abortion (principal); Z87.891 Personal history of nicotine dependence; Z3A.08 8 weeks gestation of pregnancy
CPT/HCPCS: 59820; 76857; 88305; J1100; J1885; J2250; J2405; J2704; J3010